=== PATIENT | female | born 1945 | race Caucasian/White ===

== ENCOUNTER 2020-09-25 18:12 | Emergency (ER) | payer OTHER ==
[2020-09-25 18:20] VITALS: BMI 34.0
[2020-09-25] MEDS ORDERED: ONDANSETRON 4 MG/2 ML VIAL IVPUSH ONE (20:09)
[2020-09-25] MEDS ORDERED: LACTATED RINGERS SOLUTION 1000 ML INFUS.BAG IV ONE (20:09)
[2020-09-25] MEDS ORDERED: MECLIZINE HCL 25 MG TABLET (FP) PO ONE ×2 (20:09→21:31)
[2020-09-25] MEDS ORDERED: MECLIZINE HCL 25 MG TABLET (FP) ONE ×2 (20:14→21:48)
[2020-09-25] MEDS ORDERED: ONDANSETRON 4 MG/2 ML VIAL ONE (20:14)
[2020-09-25 20:48] LABS: BASO % 1.4 % (0-2.0); EOS % 0.3 % (0-4.5); HEMATOCRIT 40.8 % (32.4-45.2); HEMOGLOBIN 13.7 GM/dL (10.7-15.3); LYMPH % 21.3 % (8-40); MCH 28.2 pg (25.7-33.7); MCHC 33.6 g/dl (32.0-36.0); MEAN CELL VOLUME 83.9 fl (80-96); MEAN PLT VOLUME 9.8 fl (7.5-11.1); MONO % 5.3 % (3.8-10.2); NEUT % 71.7 % (42.8-82.8); PLATELET COUNT 271 10^3/uL (134-434); RBC 4.86 M/mm3 (3.60-5.2); WHITE BLOOD COUNT 8.3 K/mm3 (4.0-10.0)
[2020-09-25] MEDS ORDERED: ACETAMINOPHEN 1000 MG/100 ML VIAL (NON FORMULARY) IVPB ONE (20:48)
[2020-09-25] MEDS ORDERED: ACETAMINOPHEN INJECTION 100 ML IVPB ONE (20:55)
[2020-09-25 21:08] LABS: CHLORIDE 99 mmol/L (98-107); SODIUM 137 mmol/L (136-145)
[2020-09-25 21:10] LABS: CALCIUM 10.1 mg/dL (8.5-10.1)
[2020-09-25 21:11] LABS: ALBUMIN 4.5 g/dl (3.4-5.0); ANION GAP 8 MMOL/L (8-16); BLOOD UREA NITROGEN 19.1 mg/dL (7-18); CO2 31 mmol/L (21-32); GLUCOSE,RANDOM 283 mg/dL (74-106); LIPASE 137 U/L (73-393)
[2020-09-25 21:14] LABS: SGOT/AST 36 U/L (15-37); SGPT/ALT 42 U/L (13-61)
[2020-09-25 21:15] LABS: BILIRUBIN,TOTAL 0.8 mg/dL (0.2-1); TOT PROT 7.9 g/dl (6.4-8.2)
[2020-09-25 21:16] LABS: ALK PHOS 74 U/L (45-117)
[2020-09-25 22:43] VITALS: BP 122/103; PULSE 75; TEMP 98.2
== END 2020-09-25 22:49 | disposition home or self-care (01) ==
LOC: JER 18:12
PROC: 3E0333Z Introduction of Anti-inflammatory into Peripheral Vein, Percutaneous Approach (ICD-10-PCS; principal; 2020-09-25)
PROC: 3E033GC Introduction of Other Therapeutic Substance into Peripheral Vein, Percutaneous Approach (ICD-10-PCS; 2020-09-25)
DX: R42 Dizziness and giddiness (principal)
CPT/HCPCS: 36415; 80053; 82962; 83690; 84484; 85025; 99284-25; J0131